=== PATIENT | female | born 1960 | race Caucasian/White ===

== ENCOUNTER 2016-10-27 08:14 | Emergency (ER) | payer OTHER ==
[~2016-10-27] VITALS: Ht 157.5 cm; Wt 112.9 kg
[~2016-10-27 08:14] MED LIST: IBUPROFEN800 M1 PO; NEURONTIN300 M1 PO; PERCOCET 5-3251 EACH PO
[2016-10-27 08:18] VITALS: BP 128/74
--- NOTE | 2016-10-27 08:20 | ED EAR COMPLAINT ---
History of Present Illness General Chief Complaint: Ear Complaints Stated Complaint: LT EAR PAIN Source: patient Exam Limitations: no limitations Vital Signs & Intake/Output Vital Signs & Intake/Output Vital Signs Date Time Temp Pulse Resp B/P Pulse O2 O2 Flow FiO2 Ox Delivery Rate 10/27 0838 98.1 10/27 0818 98.1 68 18 128/74 96 Room Air Allergies Coded Allergies: No Known Allergies (05/02/16) Reconcile Medications Ciprofloxacin HCl/Dexameth (Ciprodex Otic Suspension) 0.3 %-0.1 % DROPS.SUSP 4 GTT OT BID OTITIS EXTERNA Gabapentin (Neurontin) 300 MG CAPSULE 1 CAP PO BID NEUROPATHY Ibuprofen 800 MG TABLET 1 TAB PO TID PRN PAIN Levofloxacin (Levaquin) 500 MG TABLET 1 TAB PO DAILY OTITIS MEDIA Meloxicam (Mobic) 15 MG TABLET 1 TAB PO DAILY PRN PAIN Oxycodone HCl/Acetaminophen (Percocet 5-325 MG Tablet) 1 EACH TABLET 1 TAB PO BID PRN BREAKTHROUGH PAIN Triage Note: PT COMPLAINS OF L EAR PAIN X 2 MONTHS Triage Nurses Notes Reviewed? yes Onset: Gradual Duration: constant Timing: recent history Severity: severe Severity Numbers: 8 HPI: Patient is a 56-year-old female who presents to emergency room saying that in July patient was evaluated at a different emergency room for concerns of left otitis media where she was prescribed Augmentin 875MG, Naprosyn and Percocet for her symptoms. Patient states that 1 week later her symptoms did improve however she returns to emergency room with a 2 month history of left-sided ear pain and mild discharge. Patient denies any mechanism injury denies any trauma denies any fever chills however does state that she HAS muffled hearing to the left side of the ear. Denies any sore throat headache neck pain (LENA MCCLENDON) Past History Travel History Traveled to [place] past 21 day No Medical History Any Pertinent Medical History? 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 No (LENA MCCLENDON) Review of Systems Review of Systems Constitutional: Reports: no symptoms. EENTM: Reports: see HPI, ear discharge, ear pain. Respiratory: Reports: no symptoms. Cardiovascular: Reports: no symptoms. GI: Reports: no symptoms. Genitourinary: Reports: no symptoms. Musculoskeletal: Reports: no symptoms. Skin: Reports: no symptoms. Neurological/Psychological: Reports: no symptoms. Hematologic/Endocrine: Reports: no symptoms. Immunologic/Allergic: Reports: no symptoms. All Other Systems: Reviewed and Negative (LENA MCCLENDON) Physical Exam Physical Exam General Appearance: no apparent distress, alert, comfortable Head: atraumatic Eyes: Bilateral: normal appearance, PERRL, EOMI. Ears: Right: canal normal, Tympanic normal. Nose: normal inspection Mouth/Throat: normal mouth inspection Neck: normal inspection, supple, full range of motion Cardiovascular/Respiratory: normal breath sounds Back: normal inspection Neurologic/Psych: no motor/sensory deficits Skin: intact, normal color Comments: LEFT EAR- normal external anatomy ON INSPECTION, palpation of external anatomy noted point tenderness and tragus point tenderness, left external auditory canal noted mild dried purulence and erythema and swelling left tympanic membrane noted purulent white discharge tympanic membrane intact (LENA MCCLENDON) Progress Differential Diagnoses I considered the following diagnoses in my evaluation of the patient: [Otitis media, otitis externa, sinusitis, mastoiditis, tympanic membrane rupture, sepsis.] Plan of Care: Current Medications Sig/Philippe Start time Last Medication Dose Stop Time Status Admin Ibuprofen 600 MG ONCE ONE 10/28 0745 AC (Motrin) 10/27 0846 Due to history of present illness and exam findings or suspicion of otitis externa and otitis media tympanic membrane was intact, patient was strongly advised to follow-up with ENT doctor DAVID Upon discharge patient looks well no apparent distress and will comply with discharge injections and had no questions (LENA MCCLENDON) Initial ED EKG: none (LENA MCCLENDON) Departure Departure Disposition: HOME OR SELF CARE Condition: Stable Clinical Impression Primary Impression: Otitis externa Secondary Impressions: Otitis media Referrals: DAVID BISHOP,SHASHANK RUIZ Additional Instructions: DISCUSSED BEGIN THE PRESCRIPTIONS OF LEVAQUIN AND CIPRODEX EAR DROPS DIRECTED FOR YOUR SYMPTOMS BEGIN THE PRESCRIPTIONS OF MELOXICAM FOR PAIN PRESCRIPTIONS ARE WAITING AT [facility] ON SUNDAY FOLLOW UP WITH EAR, NOSE AND THROAT DOCTOR HERNANDEZ FOR FURTHER EVALUATION AND TREATMENT IF SYMPTOMS WORSEN, RETURN TO THE ER. Departure Forms: Customer Survey General Discharge Information Prescriptions: Current Visit Scripts Levofloxacin (Levaquin) 1 TAB PO DAILY #10 TAB Ciprofloxacin HCl/Dexameth (Ciprodex Otic Suspension) 4 GTT OT BID #1 BOT Meloxicam (Mobic) 1 TAB PO DAILY PRN PAIN #15 TAB (LENA MCCLENDON) PA/OPERATIONS MANAGEMENT TRAINEE Co-Sign Statement Statement: ED Attending supervision documentation- [] I saw and evaluated the patient. I have also reviewed all the pertinent lab results and diagnostic results. I agree with the findings and the plan of care as documented in the PA's/OPERATIONS MANAGEMENT TRAINEE's documentation. [X] I have reviewed the ED Record and agree with the PA's/OPERATIONS MANAGEMENT TRAINEE's documentation. [] Additions or exceptions (if any) to the PAs/OPERATIONS MANAGEMENT TRAINEE's note and plan are summarized below: [] (PREETI BISHOP,CHUCK)
[2016-10-27] MEDS ORDERED: LEVAQUIN500 M1 PO (08:34)
[2016-10-27] MEDS ORDERED: CIPRODEX OTIC7.5 ML OT (08:34)
[2016-10-27] MEDS ORDERED: MOBIC15 M1 PO (08:34)
== END 2016-10-27 08:45 ==
LOC: ERH 08:14
DX: H60.92 Unspecified otitis externa, left ear (principal); H66.92 Otitis media, unspecified, left ear